=== PATIENT | male | born 1970 | race Caucasian/White ===

== ENCOUNTER 2017-03-06 11:23 | Observation (INO) | payer BC ==
[~2017-03-06] VITALS: Ht 175.3 cm; Wt 90.0 kg
--- NOTE | ~2017-03-06 | CATH ---
Cardiac Diagnostic Report Demographics Patient Name DEMAR Patel Gender Male Date of 1970 Age 46 year(s) Patient Number [id number] Date of Study 03/07/2017 Visit Number [id number] Room Number G63[address] [place] [id number] Ht 175.26 cm Wt 90 kg Referring Alex Jimenes Primary Physician Physician Performing [place] Secondary Physician Physician Dalia LEÓN Diagnostic [facility] Assisting Physician Physician Dalia LEÓN Interventional Physician Drawing Tender Physician Findings and Conclusions Diagnostic Findings and Conclusion Mild to distal LAD with 30% stenosis. Diagnostic Recommendations Patient will be observed overnight. Continue current medications. Patient has been instructed to not lift anything more than 5 pounds for 1 week. Aggressive risk factor management. Aggressive medical therapy for mild non obstructive coronary artery disease. Optimization of medical therapy as an outpatient. Procedure Description The patient was brought to the diagnostic cardiac catheterization-EP laboratory in the fasting, non-sedated state. Informed consent was obtained in the written and verbal form after the risks and benefits were explained. The patient had no further questions and agreed to proceed. The planned puncture-incision site(s) were shaved and prepped with ChloraPrep and draped in the usual sterile manner. Conscious sedation, supplemental oxygen, and pain control medications were delivered by a registered nurse under physician guidance. Surface ECG rhythm, blood pressure measurement, and pulse oximetry were monitored throughout the procedure. Arterial access. The access site was infiltrated with lidocaine. The vessel was entered with the Seldinger technique. A sheath was advanced into the vessel and used for catheter placement. Selective left coronary angiography. A catheter was advanced into the left coronary vessel ostium under Fluoroscopic guidance. Contrast was injected by hand. Images were obtained in multiple projections. Selective right coronary angiography. A catheter was advanced into the right coronary vessel ostium under fluoroscopic guidance. Contrast was injected by hand. Images were obtained in multiple projections. Left heart catheterization. A catheter was advanced across the aortic valve to the left ventricle under fluoroscopic guidance. Resting hemodynamics were obtained. Arterial artery hemostasis was achieved. The patient was transferred to a regular nursing floor via cart accompanied by a nurse. The patient left the laboratory in stable condition. Diagnostic Cath Status: Urgent Procedure Procedure Type Diagnostic procedure:Angiography:, Coronary Angios w/[facility] Indications: Chest pain. The procedure was explained in detail to the patient. Risks, complications and alternative treatments were reviewed. Written consent was obtained. Medications Reviewed with Patient prior to Procedure. Angiographic Findings Dominance: Right Cardiac Arteries and Lesion Findings LMCA: Normal (0% Stenosis). LAD: Lesion on Dist LAD: 30% stenosis . LCx: Normal (0% Stenosis). RCA: Normal (0% Stenosis). Coronary Tree Procedure Data Procedure Date Date: 03/07/2017Start: 08:12 AMEnd: 08:29 AM Entry Locations - Retrograde Percutaneous access was performed through the Right Radial artery (Primary location). A 6 Fr sheath was inserted. Hemostasis was successfully obtained using Mechanical Compression. Closure Comments: R band with 10 cc air deployed by RT. Jermain. Procedure Medications Order and Administration + + +--------+--------+ !Time !Medication !Dosage !Route ! + + +--------+--------+ 03/07/2017 08:14 AM !Fentanyl !50 mcg !I.V. ! + + +--------+--------+ 03/07/2017 08:15 AM !Heparin (ACC_3) ! !I.V. ! + + +--------+--------+ !03/07/2017 08:11 AM !Versed !1 mg ! ! + + +--------+--------+ !03/07/2017 08:17 AM !Radial Nitroglycerin !100 mcg !I.A. ! + + +--------+--------+ Devices Used - A5 Fr. BS JR 4 Diag. Catheterwas used for:Right coronary angiography. - A5 Fr. BS JL 3.5 Diag. Catheterwas used for:Left coronary angiography. Contrast Material - Isovue 62650 ml Fluoroscopy Time: Diagnostic: 2:00 minutes. Total: 2:00 minutes. Fluoroscopy Dose: Diagnostic: 559 mGy. Total: 559 mGy. Estimated Blood Loss: 10 ml. Medical History Allergies - Eggs. - Penicillin. Risk Factors The patient risk factors include:last creatinine: 0.9 mg/dl, creatinine clearance: 133.33 ml/min and Current/Recent(w/in 1 year) tobacco use. Admission Data Admission Date: 03/06/2017 Admission Time: 03:52 PM Admit Source: Emergency department Insurance Payors: Private health insurance. Admission Medications + +------+-----+---------+---------+ + + !Medication !Dosage!Times!Last !Last !Administered !Comments ! ! ! !Per !Delivery !Delivery ! ! ! ! ! !Day !Date !Time ! ! ! + +------+-----+---------+---------+ + + !Unfractionated ! ! ! ! !Yes ! ! !Heparin (any) ! ! ! ! ! ! ! + +------+-----+---------+---------+ + + Clinical Evaluation Leading to Procedure - The patient's CAD presentation was assessed as: Unstable angina. - The patient's anginal syndrome during the past two weeks was assessed as: Class IV according to the [place] Cardiovascular Society Classification System (CCS). Hemodynamics Condition: Rest O2 Consumption: Estimated: 239.31Heart Rate: 57 bpm Pressures (mmHg) +-----+ + !Site !Pressure ! +-----+ + !LV !116/6 ,16 ! +-----+ + !LV !114/9 ,19 ! +-----+ + !AO !111/74 (91) ! +-----+ + !LV !111/6 ,17 ! +-----+ + !AO !/81 (93) ! +-----+ + Valve Gradients and Areas + +---------+---------+---------+ +---------+ + !Valve !Peak !Mean !Area !Index !Flow !Source ! + +---------+---------+---------+ +---------+ + !Aortic !0 !0 ! ! ! ! ! + +---------+---------+---------+ +---------+ + !Aortic !0 !0 ! ! ! ! ! + +---------+---------+---------+ +---------+ + Shunts Oxygen Values O2 Capacity 225.76 O2 Consumption 239.31 Discharge Data Discharge Date: 03/07/2017 Hospital Status: Inpatient Signatures dtt: DALIA GONZALEZ dtd: 03/07/17 0812 Physician Self Edit
--- NOTE | ~2017-03-06 | HP ---
PATIENT'S NAME: LAUREN BENZ [facility] AGE: 46 Y [address] ROOM: [place] [id number] LOCATION: GPCU ADMIT DATE: 03/06/2017 History & Physical DISCHARGE DATE: FAMILY PHYSICIAN: PHYSICIAN, UNKNOWN ATTENDING PHYSICIAN: GORAN UGARTE DATE OF SERVICE: CHIEF COMPLAINT: Chest pain. HISTORY OF PRESENT ILLNESS: A 46-year-old gentleman with a past medical history of [id number] smoking history, presented to the emergency department with chest pain which started while he was at work at 9:00 a.m. this morning, located in the center of the chest, feels like somebody putting pressure with his knuckles, got to the intensity of 7/10, got worsened over time associated with diaphoresis, not associated with any shortness of breath, PND, orthopnea, or leg swelling. This pain was relieved with nitroglycerin and aspirin en route. He did have 2 another episodes in the emergency department as well. On my encounter and on further questioning, he denied any headache, any trouble with the eyes, any trouble with swallowing, any cough, any sputum production, abdominal pain, any burning on urination, constipation, diarrhea, or leg swelling. REVIEW OF SYSTEMS: All other systems reviewed were negative, except what is mentioned in the HPI. PAST MEDICAL HISTORY: Tobaccoism-like questionable history of asthma which he was diagnosed, but never had any symptoms. HOME MEDICATIONS: Currently, he is not taking any home medication, but he was taking testosterone replacement therapy until last June. FAMILY HISTORY: The patient stated his sister had diabetes. SOCIAL HISTORY: 35-doyy-dudj smoking history. No alcohol or ongoing toxic drug habits. 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 PHYSICAL EXAMINATION: VITAL SIGNS: Blood pressure is 138/40, heart rate 52, 16, saturating 95% on room air. PATIENT'S NAME: LAUREN BENZ [facility] AGE: 46 Y [address] ROOM: [address] [place] [id number] LOCATION: GPCU ADMIT DATE: 03/06/2017 History & Physical DISCHARGE DATE: FAMILY PHYSICIAN: PHYSICIAN, UNKNOWN ATTENDING PHYSICIAN: GORAN UGARTE GENERAL: No acute distress. Alert and oriented x3. HEENT: Head atraumatic, normocephalic. Eyes: Nonicteric. No pallor. Oropharynx: Moist mucous membranes. CARDIOVASCULAR: S1, S2. No murmurs, gallops, or rubs. Bradycardic. ABDOMEN: Soft, nontender, and nondistended. Bowel sounds are present. EXTREMITIES: No clubbing, cyanosis, or edema. PSYCHIATRIC: Normal affect, mood, and speech. NEUROLOGIC: Cranial nerves 2 through 12 intact. No motor or sensory deficits noted. MUSCULOSKELETAL: No muscle tenderness or joint swelling noted. IMAGING: EKG was done in the emergency department, which did not reveal any acute ST-T wave changes. Chest x-ray was also done, which did not identify any vascular congestion or acute infiltrate. CBC was done, which was unremarkable, and first set of troponin was also unremarkable. CMP was done, which was largely unremarkable. ASSESSMENT AND PLAN: 1. Unstable angina. 2. Tobaccoism. 3. Questionable history of asthma. PLAN: We are going to admit this patient to the hospital for observation. We are going to start him on ACS protocol with aspirin, statin, heparin drip. P.r.n. nitroglycerin for chest pain. Holding the beta-chery given the questionable history of asthma. Echocardiography. Lipid profile, TSH will be done. Cardiology consultation has been obtained. DVT prophylaxis with Lovenox. The patient is full code. MD JENNIFER WANG/loki /[id number] D: [id number] T: [id number] HISTORY & PHYSICAL
--- NOTE | ~2017-03-06 | DS ---
PATIENT'S NAME: LAUREN BENZ [facility] AGE: 46 Y [address] ROOM: [place] [address] LOCATION: GPCU ADMIT DATE: 03/06/2017 Discharge Summary DISCHARGE DATE: 03/07/2017 FAMILY PHYSICIAN: Physician, Unknown ATTENDING PHYSICIAN: Chauncey Johnson FINAL DIAGNOSES: 1. Chest pain. 2. Long-standing nicotine usage. 3. Hypertriglyceridemia. 4. Nonobstructive coronary artery disease. HISTORY OF PRESENT ILLNESS: For details of admission, please see the history and physical dictated by Dr. Phuc Johnson. In short, the patient presented with pain that came on with exertion, and it was relieved with nitroglycerin and rest. He was admitted to the floor on the acute coronary syndrome protocol. LABORATORY DATA: On admission, sodium 141, potassium 3.8, chloride 108, CO2 of 26, BUN 13, creatinine 0.9. Liver enzymes were normal. Magnesium 2.2. Initial troponin was less than 0.04. CK was 148. Most prior to discharge, BUN was 13, creatinine 0.9. Fasting lipids: Cholesterol 137, triglycerides 337, HDL 25, LDL 45. CK enzymes all of them were less than 0.04. Hemoglobin A1c was less than 4.3. TSH was 1.03. White blood cell count on admission was 5.8, hemoglobin 17, hematocrit 47.2, platelet count 246. Most prior to discharge, hemoglobin 16.6, hematocrit 45.9. RADIOLOGY STUDIES: Chest x-ray done on admission for chest pain did not show any acute infiltrate or vascular congestion. CARDIOVASCULAR STUDIES: An echocardiogram read by Dr. Fang showed the ejection fraction to be 55%-60%. He had mild concentric left ventricular hypertrophy. HOSPITAL COURSE: The patient was admitted to the floor and treated as an acute coronary syndrome and placed on heparin and nitroglycerin. Cardiac enzymes were obtained. Dr. Fang was asked to see the patient. She did concur PATIENT'S NAME: LAUREN BENZ [facility] AGE: 46 Y [address] ROOM: [place] [address] LOCATION: GPCU ADMIT DATE: 03/06/2017 Discharge Summary DISCHARGE DATE: 03/07/2017 FAMILY PHYSICIAN: Physician, Unknown ATTENDING PHYSICIAN: Chauncey Johnson that the symptoms were consistent with acute coronary syndrome. 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 At that time, there was no critical coronary disease noted. Please see Dr. Fang's dictation for full details of the cath. Decision was made to put him on enteric-coated aspirin. It was felt that he would be stable for discharge. Because of his elevated triglyceride level, we did discuss starting him on fish oil. The patient also has a long-standing history of nicotine. He was counseled during the hospitalization of the benefits of stopping and the risks of not stopping, and we discussed strategies to be successful. After his radial site was deemed to be stable by Cardiology, it was felt that he was stable for discharge and he could be discharged to home. He is to have a low-fat diet. No restrictions in terms of physical activity. He did have the post-cardiac cath restrictions from the radial site. He is to see his primary care provider, Dr. Ania Mcclure in 5 to 7 days. MEDICATIONS: Include: 1. Enteric-coated aspirin 81 mg daily. 2. Fish oil 1000 mg 3 times daily. Once again, we discussed the importance of nicotine cessation. Overall prognosis at discharge was good. LISSETH SANCHEZ MD LAW/modl /[id number] CC: Ania Mcclure MD d: 03/08/17 0207 t: 03/14/17 1830, DISCHARGE SUMMARY
--- NOTE | ~2017-03-06 | CON ---
PATIENT'S NAME: LAUREN BENZ [facility] AGE: 46 Y [address] ROOM: [place] [address] LOCATION: GPCU ADMIT DATE: 03/06/2017 Consultation DISCHARGE DATE: FAMILY PHYSICIAN: PHYSICIAN, UNKNOWN ATTENDING PHYSICIAN: GORAN JOHNSON REFERRING PHYSICIAN: Goran Johnson MD REASON FOR CONSULTATION: Chest pain. HISTORY OF PRESENTING ILLNESS: The patient is a very pleasant, 46-year-old male, who has history of tobacco abuse, 22-acvy-srll smoking history, and he has been complaining of chest discomfort and heaviness starting today at around 9:30 in the morning, it lasted about 10 to 15 minutes. He was lifting a wheel and trying to get that fixed and he was exerting quite severely. He reports the chest heaviness also radiated up his left arm as well as the jaw. It was associated with shortness of breath as well. Once he stopped doing physical exertion, the chest discomfort resolved and he started feeling better and then he had another episode a few minutes later when he tried to resume his physical exertion again and when he stopped, the symptoms improved. His co-workers were worried about this and called the paramedics and upon arrival, they felt given his symptoms he received aspirin and he was brought to the emergency room. Once he came to the ER, he had another episode of this chest heaviness and he told the nurse about it and he was given 1 sublingual nitroglycerin, that essentially resolved the pain. Since then, he has not had another episode of chest pain. He is doing fairly well and comfortable in the PCU. He reports he has never had chest discomfort before and he is quite healthy and has not had any other complaints. He does not have any nausea, vomiting, diarrhea, constipation, fever, chills, stroke-like symptoms, skin rashes, no other acute complaints this admission. REVIEW OF SYSTEMS: All review of systems discussed with the patient. Pertinent positives and negatives mentioned in the history of presenting illness. PAST MEDICAL HISTORY: None. MEDICATIONS: None. ALLERGIES: NONE. PAST SURGICAL HISTORY: PATIENT'S NAME: LAUREN BENZ [facility] AGE: 46 Y [address] ROOM: [place] [address] LOCATION: GPCU ADMIT DATE: 03/06/2017 Consultation DISCHARGE DATE: FAMILY PHYSICIAN: PHYSICIAN, UNKNOWN ATTENDING PHYSICIAN: GORAN JOHNSON He had bilateral carpal tunnel surgery and vasectomy. SOCIAL HISTORY: The patient smokes 1 pack per day and has been doing so for 30 years. No illicit drug abuse or alcohol abuse. He is and he has children. FAMILY HISTORY: No premature coronary artery disease or sudden cardiac . PHYSICAL EXAMINATION: VITAL SIGNS: Blood pressure is 124/82, temperature 97.6, O2 saturation 95% on room air. His weight is 198. BMI is 29.3. HEAD: Normocephalic, atraumatic. NECK: No JVD. SKIN: Warm and dry. Mucous membranes moist. Eyes: No xanthelasmas. Conjunctiva white. CARDIAC: S1-S2, regular rate and rhythm. No murmurs, gallops, or rubs. LUNGS: Clear to auscultation bilaterally. ABDOMEN: Soft. Bowel sounds positive. EXTREMITIES: No significant lower extremity edema. Good range of motion. NEUROLOGIC: Grossly intact. PSYCH: The patient is not in any apparent distress. He is alert and oriented and he has normal affect. LABORATORY DATA: Sodium 141, potassium 3.8, chloride 108, CO2 26, glucose 103, BUN 13, and creatinine 0.9. Alkaline phosphatase is 38, ALT is 54, AST is 35. First set of cardiac enzymes is within normal limits. WBC 5.8, H and H 17 and 47.2, and platelets 246. Chest x-ray: There is no evidence of any vascular congestion or infiltrate, essentially normal study. IMPRESSION: 1. Unstable angina. 2. Tobacco abuse. PLAN: At this time, the patient is giving story very concerning for obstructive coronary artery disease and acute coronary syndrome. He is having predictably exertional chest discomfort radiating down the arm as well as the jaw, associated with diaphoresis. He has had several episodes and recurrent episodes. In the emergency room, he did have a chest heaviness at rest, that resolved with sublingual nitroglycerin, CCS class 4. At this time, I recommend starting the ACS protocol, heparin drip, and nitroglycerin p.r.n. chest pain. If he is having more recurrence in chest pain, I would start nitroglycerin drip as well. Aspirin, statin, and beta chery if able to, PATIENT'S NAME: LAUREN BENZ [facility] AGE: 46 Y [address] ROOM: [address] [place], [place] [address] LOCATION: [facility] ADMIT DATE: 03/06/2017 Consultation DISCHARGE DATE: FAMILY PHYSICIAN: PHYSICIAN, UNKNOWN ATTENDING PHYSICIAN: GORAN JOHNSON given his blood pressure and heart rate. At this time, risks and benefits of cardiac cath were discussed with the patient. Risks of bleeding, bruising, infection 1 in 100 cases, risk of heart attack, , stroke, SD, CVA, bleed, emergent bypass surgery, losing a limb, ending up on dialysis is less than 1 in 1000 patients. He understands and is agreeable with plan. Given the classic presentation of unstable angina and recurrent chest pain in a young man who is a smoker, at this point a cardiac cath is indicated to help define coronary anatomy and help guide therapy. Counselled against tobacco abuse. Thank you very much, Dr. Friend for allowing us to participate in the care of Mr. Benz. SALENA GONZALEZ MD AT/frederickl /[id number] d: 03/07/17 0019 t: 03/07/17 1728, CONSULTATION REPORT
--- NOTE | ~2017-03-06 | ECHO ---
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 Summary Normal LV/RV size and systolic function. The estimated left ventricular ejection fraction is 55-60%. Mild concentric left ventricular hypertrophy. Diastolic assessment reveals normal relaxation. The ascending aorta appears mildly dilated. The maximum diameter measures 3.7 cm. Dilated sinuses of valsalva measuring 4.20 cm. Procedure Type of Study TTE procedure:2D Echocardiogram. Procedure Date Date: 03/07/2017 Start: 07:18 AM Study Location: Inpatient Portable Technical Quality: Good visualization Indications:Chest pain. Appropriate Use Criteria: 8 Patient Status: Routine Rhythm: Sinus bradycardia HR: 54 bpm BP: 112/70 mmHg Allergies - Eggs. - Penicillin. M-Mode/2D Measurements LV Diastolic Dimension: 4.75 cm LV Systolic Dimension: 3.42 cm LV Septum Diastolic: 1.3 cm LV PW Diastolic: 1.19 cm AO Root Dimension: 2.9 cm Cardiac Output: 4 l/min AV Cusp Separation: 2.2 cm RV Diastolic Dimension: 3.81 cm LA volume: 32 ml LVOT: 2.2 cm RV Base: 2.84 cm LVOT VTI: 19.5 cm RV Mid: 1.84 cm LV Stroke volume: 74.09 ml TAPSE: 1.74 cm TDI-S': 11.2 cm/s Doppler Measurements AV Peak Velocity: 1.02 m/s MV Peak E-Wave: 0.97 m/s AV Peak Gradient: 4.16 mmHg MV Peak A-Wave: 0.5 m/s AV Mean Gradient: 3 mmHg MV E/A Ratio: 1.94 LVOT Peak Velocity: 0.88 m/s MV P1/2t: 64 msec TR Gradient:9.12 mmHg PV Peak Velocity: 0.68 m/s Estimated RAP:5 mmHg PV Peak Gradient: 1.87 mmHg Estimated RVSP: 14 mmHg Estimated PASP: 14.12 mmHg E' Septal Velocity: 0.09 m/s A' Septal Velocity: 0.08 m/s E' Lateral Velocity: 0.11 m/s A' Lateral Velocity: 0.09 m/s Findings Left Ventricle Mild concentric left ventricular hypertrophy. Diastolic assessment reveals normal relaxation. Right Ventricle Normal right ventricle structure and function. Left Atrium Normal left atrial size. There is no evidence of patent foramen ovale or atrial septal defect by color Doppler. Right Atrium Normal right atrial size. IVC measures 1.64 cm with inspiratory collapse. Mitral Valve Normal mitral valve structure and function. Aortic Valve Normal aortic valve structure and function. Tricuspid Valve Normal tricuspid valve structure and function. Pulmonic Valve Normal pulmonic valve structure and function. Trivial PI. Pericardial Effusion No evidence of pericardial effusion. Miscellaneous The ascending aorta appears mildly dilated. The maximum diameter measures 3.7 cm. Dilated sinuses of valsalva measuring 4.20 cm. Suboptimal subcostal window to evaluate the IVC and interatrial septum. Pleural Effusion No evidence of pleural effusion. Contractility Score LV regional wall motion:(0-Non visualized 1-Normal 2-Hypokinesis 3-Akinesis 4-Dyskinesis 5-Aneurysm) Signature dtt: SALENA GONZALEZ dtd: 03/07/17 0718 Physician Self Edit
--- NOTE | ~2017-03-06 | ER ---
PATIENT'S NAME: LAUREN BENZ [facility] AGE: 46 Y [address] ROOM: [place] [address] LOCATION: GPCU ADMIT DATE: 03/06/2017 ER/Outpatient Report DISCHARGE DATE: FAMILY PHYSICIAN: PHYSICIAN, UNKNOWN ATTENDING PHYSICIAN: GORAN JOHNSON Time of Arrival: 1120 hours. Time of Evaluation: 1120 hours. CHIEF COMPLAINT: Chest pain. HISTORY OF PRESENT ILLNESS: The patient is a 46-year-old male, who presents to the emergency department today with chief complaint of chest pain. He reports this started about 9 o'clock this morning. It is in the center of his chest, dull, pressure like pain, did radiate up into his jaw. He did get diaphoretic with it. He denies any shortness of breath. No nausea or vomiting. No weakness. No ripping or tearing sensation. No radiation to back. It comes and goes. The patient denies history of similar episodes in the past. He did receive 4 baby aspirin by EMS and 1 sublingual nitroglycerin, which did resolve pain. PAST MEDICAL HISTORY: Asthma, low testosterone. PAST SURGICAL HISTORY: Carpal tunnel, vasectomy, testicular torsion. FAMILY HISTORY: Heart disease, is none. SOCIAL HISTORY: The patient smokes a pack per day for 20 years. Drinks alcohol occasionally. Denies illicit drug use. ALLERGIES: PENICILLIN. MEDICATIONS: None. PRIMARY CARE DOCTOR: Dr. Lockwood. REVIEW OF SYSTEMS: PATIENT'S NAME: LAUREN BENZ [facility] AGE: 46 Y [address] ROOM: [place] [address] LOCATION: GPCU ADMIT DATE: 03/06/2017 ER/Outpatient Report DISCHARGE DATE: FAMILY PHYSICIAN: PHYSICIAN, UNKNOWN ATTENDING PHYSICIAN: GORAN JOHNSON All systems are reviewed by myself and are negative with the exception of those discussed in the HPI and past medical history. PHYSICAL EXAMINATION: VITAL SIGNS: Weight 94 kg, blood pressure 134/92, pulse 60, respiratory rate 16, temperature 97.3, oxygen saturation 97% on room air. GENERAL: The patient is a 46-year-old male, who appears stated age, in no acute distress. HEENT: Normocephalic, atraumatic. Pupils are equal, round, and reactive to light. Oropharynx is clear. NECK: Supple. There is no nuchal rigidity. CARDIOVASCULAR: Bradycardic, no murmurs, rubs, or gallops. LUNGS: Clear to auscultation bilaterally. No wheezes, rales, or rhonchi. ABDOMEN: Soft, nontender, and nondistended. No rebound, rigidity, or guarding. MUSCULOSKELETAL: The patient moves all 4 extremities. SKIN: Warm and dry. LABORATORY DATA AND X-RAYS: EKG is obtained, is interpreted by myself at 11:31 shows sinus rhythm with a rate of 62, normal axis, normal interval. No ST elevation, ST depression, T- wave inversions. Repeat EKG at 1200 hours is unremarkable. Another repeat 2- hour EKG at 1409 hours is unremarkable. CBC is normal. Coags are normal. CMP is normal. Cardiac enzymes are normal. LFTs are normal. Chest x-ray shows no acute process. IMPRESSION: 1. Unstable angina. 2. Initial visit. EMERGENCY DEPARTMENT COURSE: The patient was brought back to the examination room. Seen and evaluated by myself. IV is established. Laboratory analysis and imaging are obtained as described above. The patient was given another nitroglycerin tab after some chest pain here, that did resolve the patient's symptoms. He is currently chest pain-free. I discussed results with the patient. I recommended admission to hospital for further evaluation, treatment, and management. The patient is agreeable. I have discussed the case with Dr. Johnson. He does agree to accept the patient for further evaluation, treatment, and management. DISPOSITION: The patient is admitted under the care of the Hospitalist Service and Dr. Johnson, in stable condition. PATIENT'S NAME: LAUREN BENZ [facility] AGE: 46 Y [address] ROOM: [place] [address] [facility] ADMIT DATE: 03/06/2017 ER/Outpatient Report DISCHARGE DATE: FAMILY PHYSICIAN: PHYSICIAN, UNKNOWN ATTENDING PHYSICIAN: GORAN JOHNSON DO TONIO REYES/modl /[id number] d: 03/06/17 2046 t: 03/09/17 0739, OUTPATIENT REPORT
[2017-03-06 11:34] LABS: BASOPHIL # 0.1 K/uL (0.0-0.2); BASOPHIL % 0.9 %; EOSINOPHIL # 0.1 K/uL (0.0-0.5); EOSINOPHIL % 2.1 %; HEMATOCRIT 47.2 % (37.0-53.0); IMMATURE GRANULOCYTE % 0.3 %; LYMPHOCYTE # 2.1 K/uL (0.8-4.0); LYMPHOCYTE % 36.2 %; MCH 33.1 pg (27.0-34.0); MCV 91.8 fl (83.0-98.0); MONOCYTE # 0.5 K/uL (0.0-1.0); MONOCYTE % 8.3 %; MPV 9.9 fl (9.4-12.4); NEUTROPHIL % 52.2 %; NRBC % 0 /100WBC (0-0.00); PLATELET COUNT 246 K/uL (150-450); RBC 5.14 M/uL (4.00-6.00); WBC 5.8 K/uL (4.0-11.0)
[2017-03-06 11:41] LABS: INR - (THERAPEUTIC) 0.95 (0.92-1.07); PTT 28 SECONDS (25-32)
[2017-03-06 11:53] LABS: ALBUMIN 4.1 gm/dL (3.5-5.0); ALK PHOS 38 IU/L (33-138); ALT 54 IU/L (12-78); BLOOD UREA NITROGEN 13 mg/dL (6-24); CALCIUM 8.6 mg/dL (8.5-10.5); CHLORIDE 108 mMol/L (96-110); CO2 26 mMol/L (22-32); CREATININE 0.9 mg/dL (0.6-1.3); ESTIMATED GFR (MDRD EQUATION) > 60; SODIUM 141 mMol/L (135-145); TOTAL BILIRUBIN 0.8 mg/dL (0.0-1.5); TOTAL PROTEIN 7.3 g/dL (6.0-8.4)
[2017-03-06 11:54] LABS: ANION GAP 10.8 (10.0-19.0); AST 35 IU/L (10-40); CPK 148 IU/L (35-332); MAGNESIUM 2.2 mg/dL (1.8-2.6); POTASSIUM 3.8 mMol/L (3.7-5.1)
[2017-03-06 14:13] LABS: CPK 125 IU/L (35-332)
--- NOTE | 2017-03-06 17:37 | NUR ---
Patient admitted to PCU at 1710 for chest pain that started earlier today and was relieved by SL nitro in the ED. Patient is currently CP free upon arrival to PCU. VSS on RA. Dr Talyoru up to see patient and completed pre cath orders, plan for heart cath in AM at 0800. Echo to be completed prior to 0800 cath, noninvasive notified. NPO after midnight. 20 g to R) hand.
--- NOTE | 2017-03-07 04:32 | NUR ---
Significant Event: Patient alert and oriented x3. Vital signs stable. On RA. No complaints of chest pain this shift. Heparin gtt at 1200 units/hr. NS at 100ml/hr. Both to right wrist PIV. Up with stand-by assist in room. NPO since midnight. Groins prepped. Permits signed. 1200ml uop. Patient calm and cooperative with all cares. Follow up: PTT-HP at 0630. Echo and Heart Cath today.
[2017-03-07 06:55] LABS: BASOPHIL # 0.1 K/uL (0.0-0.2); BASOPHIL % 1.1 %; EOSINOPHIL # 0.2 K/uL (0.0-0.5); EOSINOPHIL % 3.8 %; HEMATOCRIT 45.9 % (37.0-53.0); HEMOGLOBIN 16.6 g/dL (12.0-17.0); IMMATURE GRANULOCYTE % 0.5 %; LYMPHOCYTE # 2.2 K/uL (0.8-4.0); LYMPHOCYTE % 38.9 %; MCH 33.2 pg (27.0-34.0); MCHC 36.2 gm/dL (32.0-36.5); MCV 91.8 fl (83.0-98.0); MONOCYTE # 0.5 K/uL (0.0-1.0); MONOCYTE % 8.5 %; MPV 10.1 fl (9.4-12.4); NEUTROPHIL # (ANC) 2.6 K/uL (1.4-9.0); NEUTROPHIL % 47.2 %; NRBC % 0 /100WBC (0-0.00); PLATELET COUNT 222 K/uL (150-450); RDW-CV 12.1 % (11.9-14.6); WBC 5.6 K/uL (4.0-11.0)
[2017-03-07 07:12] LABS: BLOOD UREA NITROGEN 13 mg/dL (6-24); CALCIUM 8.4 mg/dL (8.5-10.5); CHLORIDE 109 mMol/L (96-110); CO2 24 mMol/L (22-32); CREATININE 0.9 mg/dL (0.6-1.3); ESTIMATED GFR (MDRD EQUATION) > 60; SODIUM 141 mMol/L (135-145)
--- NOTE | 2017-03-07 13:10 | NUR ---
Introduced self and role of care management to patient. He lives in [place] with his . He states that he is able to do all his own ADL's. He states that his will assist as needed. He is planning on being discharged later today. He states that his will pick him up. He denies any needs at this time. Will continue to follow.
[2017-03-07] MEDS ORDERED: FISH OIL300 MG (15:32)
[2017-03-07] MEDS ORDERED: ASPIRIN LO-DOSE81 MG PO (15:32)
--- NOTE | 2017-03-07 18:44 | NUR ---
Significant Event: ALERT&ORIENTED. VSS, AFEBRILE, ROOM AIR. GOOD URINE OUTPUT. R)RADIAL HEART CATH WITH NO INTERVENTIONS. AIR REMOVED FROM R-BAND WITH SOME OOZING. COBAN APPLIED WITH NO FURTHER BLEEDING. INFORMED PT TO ACT LIKE WRIST IS BROKEN, DO NOT LIFT GREATER THAN 5 LBS OR PUSH/PULL ANYTHING FOR 24 HOURS. NO DRIVING. DISCHARGE INSTRUCTIONS DISCUSSED, VERBALIZED UNDERSTANDING. ESCORTED TO FRIEND'S VEHICLE. DC TO HOME.
== END 2017-03-07 16:40 | disposition disaster alternative care site (69) ==
LOC: GMED 11:23 → GPCU 15:52
PROVIDERS: Emergency Medicine; Internal Medicine Interventional Cardiology; ADMIT Internal Medicine
DX: I25.110 Atherosclerotic heart disease of native coronary artery with unstable angina pectoris (principal); E78.1 Pure hyperglyceridemia; J45.909 Unspecified asthma, uncomplicated; F17.210 Nicotine dependence, cigarettes, uncomplicated; Z88.0 Allergy status to penicillin; Z98.890 Other specified postprocedural states; Z91.012 Allergy to eggs
CPT/HCPCS: G0378; J1644; J2250; J3010; J7030

== ENCOUNTER → 2017-03-06 | Outpatient (CLI) | payer BC ==
[~2017-03-06] MED LIST: ASPIRIN LO-DOSE81 MG PO; FISH OIL300 MG
== END | disposition disaster alternative care site (69) ==
LOC: GAMB 10:57
DX: R07.89 Other chest pain (principal); M54.2 Cervicalgia; M25.512 Pain in left shoulder; Z88.0 Allergy status to penicillin
CPT/HCPCS: A0425; A0427